=== PATIENT | female | born 1985 | race Caucasian/White ===

== ENCOUNTER 2017-05-18 11:42 | Emergency (ER) | payer SELFPAY ==
[~2017-05-18 11:42] MED LIST: IBUP-232 PO; ROBA750T3 PO; Z.0.NO CURRENT MEDS
[2017-05-18 11:44] VITALS: BP 154/77; PULSE 102; RESP 14; TEMP 98.3; O2SAT 99
--- NOTE | 2017-05-18 12:23 | PD ---
HPI Chief Complaint: Lump, Cyst, Hernia Time Seen by Provider: 12:23 Travel History International Travel<30 days: No Contact w/Intl Traveler<30days: No Traveled to known affect area: No History of Present Illness HPI 32-year-old female presents to the emergency department for evaluation of a lipoma on the posterior left thigh. This is been there for 2 years. Patient states that she struck something earlier this week and it is not discolored. She would like it removed. The the area is painful, moderate in severity, constant exacerbated by sitting or pushing on it. Denies fever or chills. Denies any other injury. No other symptoms to report. History Past Medical Histgory Medical History: Denies Significant Hx Social History Alcohol Use: No Tobacco Use: No Allergies-Medications (Allergen,Severity, Reaction): Coded Allergies: No Known Allergies (Verified , 02/27/09) Reported Meds & Prescriptions Reported Meds & Active Scripts Active Robaxin-750 (Methocarbamol) 750 Mg Tab 1 Tab PO QIDPRN FOR PAIN Motrin (Ibuprofen) 600 Mg Tab 1 Tab PO TIDPRN PAIN NEEDED FOR PAIN Reported No Current Meds (Miscellaneous Medication) Misc Review of Systems Except as stated in HPI: all other systems reviewed are Neg Physical Exam Narrative GENERAL: Well-nourished, well-developed female patient in no acute distress SKIN: Focused skin assessment warm/dry. 3 cm in diameter soft, skin colored lump on the posterior left thigh. There is some bruising on the top of it. No induration or fluctuation. HEAD: Normocephalic. EYES: No scleral icterus. No injection or drainage. NECK: Supple, trachea midline. No JVD or lymphadenopathy. CARDIOVASCULAR: Regular rate and rhythm without murmurs, gallops, or rubs. RESPIRATORY: Breath sounds equal bilaterally. No accessory muscle use. Data Data Last Documented VS Vital Signs Date Time Temp Pulse Resp B/P (MAP) Pulse Ox O2 Delivery O2 Flow Rate FiO2 05/18/17 11:44 98.3 102 14 154/77 (102) 99 MDM Medical Screen Exam Complete: Yes Emergency Medical Condition: No Differential Diagnosis lipoma left thigh Narrative Course 32-year-old female presents to emergency department for evaluation of a lump on her left thigh. This is consistent with a lipoma. It has been there now for 2 years. I explained to the patient that this would need to be evaluated by dermatology or general surgery if she really did want it removed. At this time there are no urgent or emergent needs for medical intervention identified. A medical screening exam was performed: At the time of evaluation the presenting medical condition was determined not to be of an emergent nature. The patient was given the option of receiving additional care, but declined. Patient was given options for additional community resources from which to obtain care. The Patient Has Been advised to seek medical attention for their presenting complaint. The patient has been advised to return to the ER at any time if an emergent condition develops. Primary Impression: Encounter for medical screening examination Condition: Stable Marisol Cox May 18, 2017 12:23
== END 2017-05-18 12:43 | disposition left against medical advice (07) ==
LOC: NEPK 11:42
DX: D17.24 Benign lipomatous neoplasm of skin and subcutaneous tissue of left leg (principal)
CPT/HCPCS: 99281

== ENCOUNTER 2017-06-15 14:37 | Emergency (ER) | payer SELFPAY ==
[2017-06-15 14:38] VITALS: BP 144/77; PULSE 90; RESP 16; TEMP 98.7; O2SAT 99
[2017-06-15 15:25] LABS: BACTERIA, URINE FEW /hpf; BLOOD, URINE LARGE (NEG); COMMENT (UR) CULTURE INDICATED; CULTURE IF INDICATED CULTURE INDICATED; GLUCOSE,URINE NEG (NEG); KETONE, URINE NEG (NEG); MUCUS URINE FEW /lpf (OCC); NITRITE,URINE NEG (NEG); SQUAMOUS EPITHELIAL CELL URINE 10 /hpf (0-5)
[2017-06-15 15:29] LABS: URINE COLOR LIGHT-BROWN (YELLW/STRAW)
[2017-06-15] MEDS ORDERED: PHEN0.4T PO (15:46)
[2017-06-15] MEDS ORDERED: CEPH-460 PO (15:46)
--- NOTE | 2017-06-15 15:47 | PD ---
HPI Chief Complaint: Complaint Time Seen by Provider: 15:44 Travel History International Travel<30 days: No Contact w/Intl Traveler<30days: No Traveled to known affect area: No History of Present Illness HPI Pt is a 32 year old female presenting with urinary symptoms. Patient reports 2 days of urinary symptoms including frequency, dysuria, hematuria. She denies any vaginal bleeding or discharge. She further denies any fevers, chills, nausea or vomiting. She has had mild pelvic cramping when she urinates. No other complaints at this time. PFSH Past Medical History Anxiety: Yes Seizures: Yes (4 SINCE AUGUST - NOT TAKING TEGRETOL>HEADACHES) ?: Not LMP: 06/05/17 Social History Alcohol Use: No Tobacco Use: No Allergies-Medications (Allergen,Severity, Reaction): Coded Allergies: No Known Allergies (Verified Adverse Reaction, Unknown, 06/15/17) Reported Meds & Prescriptions Reported Meds & Active Scripts Active Pyridium (Phenazopyridine HCl) 100 Mg Tab 100 Mg PO Q8H PRN Keflex (Cephalexin) 500 Mg Cap 500 Mg PO Q8H 7 Days Robaxin-750 (Methocarbamol) 750 Mg Tab 1 Tab PO QIDPRN FOR PAIN Motrin (Ibuprofen) 600 Mg Tab 1 Tab PO TIDPRN PAIN NEEDED FOR PAIN Reported No Current Meds (Miscellaneous Medication) [facility] Review of Systems Except as stated in HPI: all other systems reviewed are Neg Genitourinary: Positive: Urgency, Frequency, Dysuria, Hematuria, Pelvic Pain ( cramping) Physical Exam Narrative GENERAL: Well developed, well nourished alert female. Resting in no acute distress. SKIN: Warm and dry. HEAD: Normocephalic. EYES: No scleral icterus. No injection or drainage. NECK: Supple, trachea midline. No JVD or lymphadenopathy. CARDIOVASCULAR: Regular rate and rhythm without murmurs, gallops, or rubs. RESPIRATORY: Breath sounds equal bilaterally. No accessory muscle use. GASTROINTESTINAL: Abdomen soft, non-tender, nondistended. MUSCULOSKELETAL: No cyanosis, or edema. BACK: Nontender without obvious deformity. No CVA tenderness. Data Data Last Documented VS Vital Signs Date Time Temp Pulse Resp B/P (MAP) Pulse Ox O2 Delivery O2 Flow Rate FiO2 06/15/17 15:51 06/15/17 14:38 98.7 90 16 99 Orders Orders Urinalysis - C+S If Indicated (06/15/17 14:47) Urine Culture (06/15/17 15:00) Ed Discharge Order (06/15/17 15:44) Labs Laboratory Tests Test 06/15/17 15:00 Urine Color LIGHT-BROWN Urine Turbidity HAZY Urine pH 6.0 Urine Specific [place] 1.014 Urine Protein 100 mg/dL Urine Glucose (UA) NEG mg/dL Urine Ketones NEG mg/dL Urine Occult Blood LARGE Urine Nitrite NEG Urine Bilirubin NEG Urine Urobilinogen LESS THAN 2.0 MG/DL Urine Leukocyte Esterase LARGE Urine RBC /hpf Urine WBC /hpf Urine Squamous Epithelial Cells 10 /hpf Urine Bacteria FEW /hpf Urine Mucus FEW /lpf Microscopic Urinalysis Comment CULTURE INDICATED MDM Medical Decision Making Medical Screen Exam Complete: Yes Emergency Medical Condition: Yes Interpretation(s) Laboratory Tests Test 06/15/17 15:00 Urine Color LIGHT-BROWN Urine Turbidity HAZY Urine pH 6.0 Urine Specific [place] 1.014 Urine Protein 100 mg/dL Urine Glucose (UA) NEG mg/dL Urine Ketones NEG mg/dL Urine Occult Blood LARGE Urine Nitrite NEG Urine Bilirubin NEG Urine Urobilinogen LESS THAN 2.0 MG/DL Urine Leukocyte Esterase LARGE Urine RBC /hpf Urine WBC /hpf Urine Squamous Epithelial Cells 10 /hpf Urine Bacteria FEW /hpf Urine Mucus FEW /lpf Microscopic Urinalysis Comment CULTURE INDICATED Vital Signs Date Time Temp Pulse Resp B/P (MAP) Pulse Ox O2 Delivery O2 Flow Rate FiO2 06/15/17 15:51 06/15/17 14:38 98.7 90 16 144/77 (99) 99 Differential Diagnosis UTI vs cystitis vs pyelonephritis vs other Narrative Course Pt presented with 2 days of urinary symptoms. VSS UA ordered. UA resulted and is consistent with a UTI. Pt will be started on Kelfex empirically, she was advised that if the culture shows resistance she will be notified and a new Rx will be called in. She was encouraged to increase fluid intake, complete full course of abx and to follow up with a PCP or at the [place] [facility]. She verbalized understanding. She was also encouraged to return here for any new or worsening symptoms. Pt is stable for discharge. Diagnosis Primary Impression: Urinary tract infection Qualified Codes: N39.0 - Urinary tract infection, site not specified; R31.9 - Hematuria, unspecified Referrals: [facility] Primary Care Physician Patient Instructions: General Instructions, Urinary Tract Infection in Women ( [place]) Additional Instructions: Follow-up with a primary doctor or at the [facility] Complete full course of antibiotics as prescribed Increasing her fluid intake Return to emergency department for any new or worsening symptoms Med/Other Pt SpecificInfo: Prescription(s) given Scripts Phenazopyridine (Pyridium) 100 Mg Tab 100 MG PO Q8H Y for DYSURIA, #10 TAB 0 Refills Prov: Willa Morales 06/15/17 Cephalexin (Keflex) 500 Mg Cap 500 MG PO Q8H for Infection for 7 Days, #21 CAP 0 Refills Prov: Willa Morales 06/15/17 Disposition: 01 DISCHARGE HOME Condition: Stable Willa Morales Jun 15, 2017 15:47
== END 2017-06-15 20:29 | disposition home or self-care (01) ==
LOC: NEPK 14:37
DX: N39.0 Urinary tract infection, site not specified (principal); B96.20 Unspecified Escherichia coli [E. coli] as the cause of diseases classified elsewhere; R31.9 Hematuria, unspecified
CPT/HCPCS: 81001; 87077; 87086; 87186; 99283